=== PATIENT | male | born 1950 | race Caucasian/White ===

== ENCOUNTER 2017-06-10 11:22 | Emergency (ER) | payer MEDICARE ==
[2017-06-10 11:22] VITALS: BMI 40.3
[2017-06-10 13:05] LABS: BASO # 0.1 K/uL (0.0-0.2); BASO % 1.3 % (0.0-2.0); EOS # 0.2 K/uL (0.0-0.7); EOS % 2.5 % (0.0-4.0); LYMPH # 2.1 K/uL (1.0-4.3); LYMPH % 26.8 % (20.0-40.0); MEAN CELL VOLUME 90.9 fl (80.0-94.0); MEAN CORPUSCULAR HEMOGLOBIN 31.4 pg (27.0-31.0); MEAN CORPUSCULAR HGB CONC 34.6 g/dL (33.0-37.0); MEAN PLATELET VOLUME 8.2 fl (7.2-11.7); MONO # 0.7 K/uL (0.0-0.8); MONO % 9.1 % (0.0-10.0); NEUT # 4.8 K/uL (1.8-7.0); NEUT % 60.3 % (50.0-75.0); NRBC % 0.1 % (0.0-0.0); RBC 5.1 Mil/uL (4.40-5.90); RED CELL DISTRIBUTION WIDTH 13.8 % (11.5-14.5); WHITE BLOOD COUNT 7.9 K/uL (4.8-10.8)
[2017-06-10 13:17] LABS: ALB/GLOB RATIO 1.3 (1.0-2.1); ALBUMIN 4.3 g/dL (3.5-5.0); ALT/SGPT 40 U/L (21-72); AST/SGOT 27 U/L (17-59); BLOOD UREA NITROGEN 17 mg/dl (9-20); CALCIUM 9.7 mg/dL (8.4-10.2); GFR AFRICAN-AMERICAN > 60; GFR NON-AFRICAN AMERICAN > 60
[2017-06-10 13:19] LABS: PARTIAL THROMBOPLASTIN TIME 29.5 Seconds (25.6-37.1); PROTHROMBIN TIME 11.1 Seconds (9.8-13.1)
--- NOTE | 2017-06-10 13:54 | ED PDOC ---
HPI: General Adult Time Seen by Provider: 06/10/17 12:31 Chief Complaint (Nursing): Back Pain Chief Complaint (Provider): Left Flank Pain History Per: Patient History/Exam Limitations: no limitations Onset/Duration Of Symptoms: Days (x7) Current Symptoms Are (Timing): Still Present Similar Symptoms Previously: no Additional Complaint(s): 66 year old male with a past medical history of HTN, Diabetes, and hypercholesterolemia presents to the ER for evaluation of left flank pain onset 1 week ago. Patient reports that pain worsens with deep breaths and radiates to the chest and occasionally to the back. Patient denies similar symptoms in the past and takes Baby Aspirin every day. He denies shortness of breath, fever, chills, nausea, vomiting, diarrhea, abdominal pain, or leg swelling and pain. He offers no other medical complaints at this time. PMD: Nirmala Simmons at [facility] Past Medical History Vital Signs: Last Vital Signs Temp 97.6 F 06/10/17 11:26 Pulse 85 06/10/17 11:26 Resp 20 06/10/17 11:26 BP 178/81 H 06/10/17 11:26 Pulse Ox 99 06/10/17 14:01 - Medical History PMH: Arthritis (general), Diabetes, Gall Bladder Disease ([place]), HTN, Hypercholesterolemia Denies: Alzheimer's Disease, Anemia, Anxiety, Asthma, Atrial Fibrillation, Bipolar Disorder, Bronchitis, CAD, Cardia Arrhythmia, CHF, COPD, Crohn's Disease , Dementia, Depression, Diverticulitis, Emphysema, Fractures, Gastritis, HIV, Hyperthyroidism, Hypothyroidism, Kidney Stones, Migraine, Mitral Valve Prolapse , Multiple Sclerosis, Osteoporosis, Pancreatitis, Paranoia, Parkinson's Disease , Peripheral Edema, Pneumonia, Post Traumatic Stress Disorder, Pulmonary Embolism, Chronic Kidney Disease, Rheumatoid Arthritis, Schizophrenia, Seizures , Sickle Cell Disease, Sexually Transmitted Disease, Sleep Apnea, TIA - Surgical History Surgical History: Cholecystectomy Denies: Appendectomy, CABG, Carotid Endarterectomy, Coronary Stent, Pacemaker , Tonsillectomy - Family History Family History: States: Hypertension - Social History Current smoker - smoking cessation education provided: No Alcohol: None - Home Medications Home Medications: Ambulatory Orders Medication Instructions Recorded Aspirin [Ecotrin] 81 mg PO DAILY 12/15/15 Atorvastatin [Lipitor] 20 mg PO HS 12/15/15 Carvedilol [Coreg] 12.5 mg PO Q12H 12/15/15 Cholecalciferol [Vitamin D 1000 IU] 1,000 unit PO DAILY 12/15/15 Losartan/Hydrochlorothiazide 1 tab PO DAILY 12/15/15 [Hyzaar 100-12.5 Tablet] Naproxen [Naprosyn] 500 mg PO Q12H PRN 12/15/15 Cyclobenzaprine [Cyclobenzaprine 10 mg PO Q8H PRN #12 tab 06/10/17 HCl] - Allergies Allergies/Adverse Reactions: Allergies Allergy/AdvReac Type Severity Reaction Status Date / Time No Known Allergies Allergy Verified 06/10/17 11:38 Review of Systems ROS Statement: Except As Marked, All Systems Reviewed And Found Negative Constitutional: Negative for: Fever, Chills Cardiovascular: Positive for: Chest Pain (secondary to flank pain) Respiratory: Negative for: Shortness of Breath Gastrointestinal: Negative for: Nausea, Vomiting, Abdominal Pain, Diarrhea Musculoskeletal: Positive for: Back Pain (left flank). Negative for: Leg Pain, Foot Pain Physical Exam - Reviewed Nursing Documentation Reviewed: Yes Vital Signs Reviewed: Yes - Physical Exam Appears: Positive for: Non-toxic, No Acute Distress Head Exam: Positive for: ATRAUMATIC, NORMAL INSPECTION, NORMOCEPHALIC Skin: Positive for: Normal Color, Warm, Dry Eye Exam: Positive for: Normal appearance Neck: Positive for: Normal, Painless ROM, Supple Cardiovascular/Chest: Positive for: Regular Rate, Rhythm. Negative for: Murmur Respiratory: Positive for: Normal Breath Sounds. Negative for: Respiratory Distress Gastrointestinal/Abdominal: Positive for: Normal Exam, Soft. Negative for: Tenderness, Guarding, Rebound Back: Positive for: Normal Inspection. Negative for: L CVA Tenderness, R CVA Tenderness, Vertebral Tenderness Extremity: Positive for: Normal ROM. Negative for: Deformity, Swelling Neurologic/Psych: Positive for: Alert, Oriented - Laboratory Results Result Diagrams: 06/10/17 12:58 06/10/17 12:58 - ECG O2 Sat by Pulse Oximetry: 99 (RA) Pulse Ox Interpretation: Normal Medical Decision Making Medical Decision Making: Time: 13:30 Plan: --CT Chest --EKG Chest CT normal. Troponin (-) Scribe Attestation: Documented by Marisol Camacho, acting as a scribe for Ladi Lima PA-C Provider Scribe Attestation: All medical record entries made by the Scribe were at my direction and personally dictated by me. I have reviewed the chart and agree that the record accurately reflects my personal performance of the history, physical exam, medical decision making, and the department course for this patient. I have also personally directed, reviewed, and agree with the discharge instructions and disposition. Disposition - Clinical Impression Clinical Impression: Musculoskeletal back pain - Patient ED Disposition Is Patient to be Admitted: No Counseled Patient/Family Regarding: Diagnosis, Need For Followup, Rx Given - Disposition Disposition: Routine/Home Disposition Time: 15:59 Condition: GOOD Prescriptions: Cyclobenzaprine [Cyclobenzaprine HCl] 10 mg PO Q8H PRN #12 tab PRN Reason: Muscle Spasm Instructions: Upper Back Pain (DC) Forms: [employer] (Georgian)
[2017-06-10] MEDS ORDERED: Iodixanol 320 MG/ML 100 ML BOTTLE IV ONE (14:20)
[2017-06-10] MEDS ORDERED: Sodium Chloride 0.9% 100 ML ONE (14:20)
--- NOTE | 2017-06-10 15:37 | CT ---
PROCEDURE: CT Chest with contrast (Pulmonary Angiogram) HISTORY: Left flank pain, pleuritic COMPARISON: Comparison made with chest radiograph dated 12/15/2015. TECHNIQUE: Axial computed tomography images were obtained of the chest in the pulmonary arterial phase of enhancement. Coronal and sagittal reformatted images were created and reviewed. Intravenous contrast dose: 99 cc Visipaque 320 Radiation dose: Total exam DLP = 506.61 mGy-cm. This CT exam was performed using one or more of the following dose reduction techniques: Automated exposure control, adjustment of the mA and/or kV according to patient size, and/or use of iterative reconstruction technique. FINDINGS: PULMONARY ARTERIES: The visualized pulmonary trunk, right and left main, lobar, segmental and subsegmental branches of the pulmonary arteries are well opacified with no definitive filling defects seen to suggest acute pulmonary embolus. Pulmonary trunk measures approximately 2.27 cm. AORTA: No acute findings. No thoracic aortic aneurysm. Ascending thoracic aorta measures approximately 3.74 cm and descending thoracic aorta measures approximately 2.64 cm. LUNGS: Minor chronic linear/curvilinear scarring changes seen in the lingular and middle lobe regions bilaterally. Additionally, some vague ground-glass opacity seen in the right lung apex possibly representing pneumonitis. PLEURAL SPACES: Unremarkable. No effusion or pneumothorax. HEART: Heart size is within range of normal. No significant pericardial effusion. . No cardiomegaly. No significant pericardial effusion. LYMPH NODES: Multiple small to medium-sized nonspecific mediastinal lymph nodes are present. No significant hilar adenopathy. BONES, CHEST WALL: There are no acute compression fractures nor retropulsed fragments however multilevel anterior flowing/bridging anterior osteophyte formation seen involving most of the thoracic segments. OTHER FINDINGS: There is a tiny hiatal hernia with minimal wall thickening of the distal esophagus. Changes of cholecystectomy. IMPRESSION: No evidence of acute central pulmonary embolus. Minor linear/curvilinear scarring changes seen in the middle lobe and lingular regions.
[2017-06-10 16:08] VITALS: BP 138/80; PULSE 78; RESP 15; TEMP 98.2; O2SAT 97
--- NOTE | 2017-06-13 18:24 | CARD ---
APPROVED REPORT EKG Measurement Heart [id number] SD [id number] <Conclusion> Normal sinus rhythm Normal ECG
== END 2017-06-10 16:09 | disposition home or self-care (01) ==
LOC: H.ER 11:22
DX: M54.9 Dorsalgia, unspecified (principal); E11.9 Type 2 diabetes mellitus without complications; I10 Essential (primary) hypertension; Z79.82 Long term (current) use of aspirin; E78.00 Pure hypercholesterolemia, unspecified
CPT/HCPCS: 71275; 80053; 84484; 85025; 85610; 85730; 93005; 99282; Q9967